=== PATIENT | female | born 1970 | race Caucasian/White ===

== ENCOUNTER 2017-02-16 22:44 | Emergency (ER) | payer MEDICAID ==
--- NOTE | ~2017-02-16 | CR72 ---
[facility] A Service of [facility] & [facility] / [facility] RADIOLOGY TEXT RESULTS PATIENT: KURT FRANCIS LOCATION: [facility] : 72 UNIT #: [id number] AGE: [address]: Job Almanza MD SEX: F ORDER DR: [id number] [facility] [address] [place], [place] [address] [id number] E MR#: [id number] Acc #: [id number] NAME: KURT FRANCIS : 1970 SEX: F STUDY DATE/TIME: 02/16/2017 23:26 UNIT: [facility] ROOM: STUDY DESCRIPTION: CR Chest Single View Portable Attending Physician: Job Almanza M.D. Ordering Physician: Job Almanza M.D. Primary Care Physician: Primary Care Physician No MEDICAL IMAGING REPORT This report is preliminary unless electronic signature is present EXAM Portable chest INDICATION Shortness of air and chest pain for the past 4 days. PROCEDURE Frontal view chest. COMPARISON 05/17/2016. FINDINGS Heart size is within normal limits. No dense consolidation, pleural fluid or pneumothorax. IMPRESSION No active process. Dictated by... Matthew Stewart M.D. THIS IS AN ELECTRONICALLY VERIFIED REPORT Matthew Stewart M.D. at 02/17/2017 9:54 PM DIMITRY/kenny TD: 02/17/2017 09:23 JOB #: [id number] MEDICAL IMAGING REPORT Page 1 of 1 COPY
[~2017-02-16 22:44] MED LIST: ALBUTEROL17 GM INH; ALPRAZOLAM PO; FORADIL12 MCG NEB; LORTAB 10/500 T1 TAB PO; MOBIC PO; OXYCONTIN PO
== END 2017-02-17 00:35 | disposition home or self-care (01) ==
LOC: CED 22:44
DX: J44.1 Chronic obstructive pulmonary disease with (acute) exacerbation (principal); I50.9 Heart failure, unspecified; Z90.49 Acquired absence of other specified parts of digestive tract; Z90.710 Acquired absence of both cervix and uterus; F17.200 Nicotine dependence, unspecified, uncomplicated; Z91.040 Latex allergy status; Z88.8 Allergy status to other drugs, medicaments and biological substances
CPT/HCPCS: 71010; 94640; 99285